=== PATIENT | female | born 1975 | race Caucasian/White ===

== ENCOUNTER → 2019-10-29 | Outpatient (CLI) | payer OTHER ==
[~2019-10-29] MED LIST: ALLERGY EYE DRO10 M1 OPHTHALMIC; BUSPIRONE HCL5 MG PO; CELEXA 10 MG TA10 M1 PO; CHILDREN'S ZYRT10 M1 PO; DAPSONE100 MG PO; DORYX MPC120 MG PO; DULCOLAX STOOL100 M1 PO; IBU600 MG PO; IMITREX 50 MG T50 MG PO; NEURONTIN 300M300 M2 PO; OMEPRAZOLE 20 M20 M1 PO; OXYBUTYNIN 5 MG5 M2 PO; PHENERGAN 25 MG25 M1 PO; PREMARIN0.625 MG PO; VITAMIN B-121000 MC2 PO; VITAMIN B-2100 MG PO; VOLTAREN GEL 1100 G1 TOP; ZANAFLEX4 M2 PO; [UNRECOGNIZED DRUG - OTHER]
== END ==
LOC: M.PC 10:40
DX: M47.26 Other spondylosis with radiculopathy, lumbar region (principal); M51.16 Intervertebral disc disorders with radiculopathy, lumbar region; M25.551 Pain in right hip; M25.552 Pain in left hip